=== PATIENT | male | born 1955 | race African-American/Black ===

== ENCOUNTER 2016-02-29 14:29 | Emergency (ER) ==
[2016-02-29 14:58] LABS: MANUAL DIFF NEEDED? NO
[2016-02-29 15:00] LABS: BASO% 0.4 % (0.0-0.8); EOS# 0.11 X1000 (0.0-0.7); EOS% 2.3 % (0.0-10.0); HEMATOCRIT 43.5 % (42.0-52.0); HEMOGLOBIN 14.9 g/dL (14.0-18.0); IMM GRAN# 0.02 X1000 (0.0-0.04); IMM GRAN% 0.4 % (0.0-0.5); LYMPH# 1.58 X1000 (1.2-3.4); LYMPH% 33.6 % (20.5-51.1); MCH 30.3 PG (27-31); MCHC 34.3 g/dL (33-37); MCV 88.4 FL (81-99); MONO# 0.51 X1000 (0.11-0.59); MONO% 10.9 % (1.7-9.3); NEUT% 52.4 % (42.2-75.2); PLT 228 X1000 (130-400); RBC 4.92 XMIL (4.7-6.1)
--- NOTE | 2016-02-29 15:09 | EKG Report ---
Test Performed on : 02/29/2016 2:52:12 PM Test Reason : CHEST PAIN Blood Pressure : / mmHG Vent. Rate : 066 BPM Atrial Rate : 066 BPM P-R Int : 178 ms QRS Dur : 088 ms QT Int : 424 ms P-R-T Axes : 066 058 031 degrees QTc Int : 444 ms Normal sinus rhythm. Nonspecific T wave abnormality Abnormal ECG When compared with ECG of 19-DEC-2013 15:39, No significant change was found Unconfirmed Result
[2016-02-29 15:17] LABS: INR 0.94 (0.86-1.15); PROTIME 12.9 Seconds (12.1-15.5)
[2016-02-29 15:18] LABS: PTT PL 29.7 Seconds (22.6-43.9)
[2016-02-29 15:23] LABS: AGAP 10; ALBUMIN 4.2 g/dL (3.5-5.0); ALKALINE PHOSPHATASE 49 U/L (32-122); BUN 15 mg/dL (8-22); CALCIUM 9.5 mg/dL (8.8-10.2); CHLORIDE 105 mmol/L (98-107); CK PROFILE 115 U/L (24-204); COSMO 278; GOT 31 U/L (10-34); GPT 54 U/L (10-44); MAGNESIUM 2.1 mg/dL (1.5-2.7); POTASSIUM 3.7 mmol/L (3.5-5.1); SODIUM 139 mmol/L (136-145); TCO2 25 mmol/L (25-35); TOTAL PROTEIN 7.3 g/dL (6.3-8.3)
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
--- NOTE | 2016-02-29 15:28 | Diag Imaging Result Document ---
PROCEDURE NAME: CHEST-2 VIEWS - 02/29/2016 PA AND LATERAL RADIOGRAPH OF THE CHEST: COMPARISON: 08/21/2015. FINDINGS: The lungs are grossly clear. There is no discrete pleural fluid collection or evidence of pneumothorax. The cardiomediastinal silhouette and upper airway are grossly unremarkable. IMPRESSION: No evidence of acute chest pathology.
[2016-02-29 19:12] VITALS: BP 137/67
== END 2016-02-29 19:16 | disposition home or self-care (01) ==
LOC: P.ED 14:29
DX: R07.89 Other chest pain (principal); R94.31 Abnormal electrocardiogram [ECG] [EKG]; M79.602 Pain in left arm; M79.601 Pain in right arm
CPT/HCPCS: 71020; 80053; 82550; 83690; 83735; 83880; 84484; 85025; 85610; 85730; 93005; 99284